=== PATIENT | male | born 1980 ===

== ENCOUNTER 2018-01-26 21:39 | Emergency (ER) | payer OTHER ==
[2018-01-26 21:40] VITALS: BMI 26.9
[2018-01-26 21:52] VITALS: PULSE 62; RESP 16; TEMP 98.2; O2SAT 100
[2018-01-26 22:24] LABS: BASO # 0.1 K/uL (0.0-0.2); BASO % 0.8 % (0.0-2.0); EOS # 0.1 K/uL (0.0-0.7); EOS % 1.1 % (0.0-4.0); HEMOGLOBIN 15.4 g/dL (12.0-18.0); LYMPH % 33.5 % (20.0-40.0); MEAN CELL VOLUME 84.2 fL (80.0-94.0); MEAN CORPUSCULAR HEMOGLOBIN 28.2 pg (27.0-31.0); MEAN CORPUSCULAR HGB CONC 33.5 g/dL (33.0-37.0); MONO % 10.7 % (0.0-10.0); NEUT # 4.9 K/uL (1.8-7.0); NEUT % 53.9 % (50.0-75.0); NRBC % 0.1 % (0.0-2.0); RBC 5.47 Mil/uL (4.40-5.90); RED CELL DISTRIBUTION WIDTH 13.4 % (11.5-14.5); WHITE BLOOD COUNT 9.1 K/uL (4.8-10.8)
--- NOTE | 2018-01-26 22:25 | C.PDOC ---
History Of Present Illness 37-year-old male, whose PMHx includes "clotting disorder" and hypertension, presents to the ED for evaluation of chest pain which began a few days ago. Patient states his Coumadin is currently being adjusted. He denies fever. Further history is limited secondary to patient being a poor historian. Time Seen by Provider: 01/26/18 22:06 Chief Complaint (Nursing): Chest Pain History Per: Patient (poor historian ) Current Symptoms Are (Timing): Still Present Quality: "Pain" Additional History Per: Patient Past Medical History Reviewed: Historical Data, Nursing Documentation, Vital Signs Vital Signs: Last Vital Signs Temp 98.2 F 01/26/18 21:45 Pulse 62 01/26/18 23:03 Resp 16 01/26/18 23:03 BP 116/67 01/26/18 23:03 Pulse Ox 100 01/26/18 23:03 - Medical History PMH: HTN, Hypercholesterolemia Surgical History: No Surg Hx Family History: States: Unknown Family Hx - Social History Hx Alcohol Use: No Hx Substance Use: No - Immunization History Hx Tetanus Toxoid Vaccination: Yes Hx Influenza Vaccination: No Hx Pneumococcal Vaccination: No Review Of Systems Constitutional: Negative for: Fever Cardiovascular: Positive for: Chest Pain Physical Exam - Physical Exam Appears: Non-toxic, No Acute Distress Skin: Normal Color, Warm, Dry Head: Atraumatic, Normacephalic Eye(s): bilateral: Normal Inspection Oral Mucosa: Moist Neck: Supple Chest: Symmetrical, No Deformity, No Tenderness Cardiovascular: Rhythm Regular, No Murmur Respiratory: Normal Breath Sounds, No Rales, No Rhonchi, No Wheezing Extremity: Normal ROM, Capillary Refill (less than 2 seconds ) ED Course And Treatment - Laboratory Results Result Diagrams: 01/26/18 22:18 01/26/18 22:18 ECG: Interpreted By Me, Viewed By Me ECG Rhythm: Sinus Rhythm Interpretation Of ECG: Normal Sinus Rhythm at rate 60bpm. No ST/T wave changes. Rate From EC O2 Sat by Pulse Oximetry: 100 (on RA) Pulse Ox Interpretation: Normal - Radiology CXR: Interpreted by Me (negative ) Medical Decision Making Medical Decision Making: cp ro acs pe Progress: Bloodwork, CXR and EKG ordered and reviewed. CXR is negative. pt reassesed all symptoms resolved. offered admission. pt prefers to go home. heart score 4. dimer neg. notified of subtherapeutic inr. adivsed to increase dose and f/u wtih pmd for titration. Disposition - Disposition Disposition: HOME/ ROUTINE Disposition Time: 23:00 Condition: STABLE Additional Instructions: please follow up with your doctor. return to er with your doctor/clinic. you should discuss with your doctor about your warfarin levels. your medications will need to be adjusted. Instructions: Chest Pain Forms: [employer] (Cupon[place]) Connect (Ghanaian) Print Language: MACEDONIAN - Clinical Impression Clinical Impression: Chest pain
[2018-01-26 22:34] LABS: INR 1.1; PARTIAL THROMBOPLASTIN TIME 29 SECONDS (21-34); PROTHROMBIN TIME 11.6 SECONDS (9.7-12.2)
[2018-01-26 22:36] LABS: ALB/GLOB RATIO 1.3 (1.0-2.1); ALBUMIN 4.3 g/dL (3.5-5.0); ALT/SGPT 41 U/L (21-72); AST/SGOT 27 U/L (17-59); BLOOD UREA NITROGEN 16 mg/dL (9-20); CALCIUM 9.4 mg/dl (8.6-10.4); GFR NON-AFRICAN AMERICAN > 60
[2018-01-26 22:43] LABS: D DIMER < 200 ng/mlDDU (0-243)
[2018-01-26 23:04] VITALS: BP 116/67
--- NOTE | 2018-01-27 08:46 | RAD ---
Date of service: 01/26/2018 PROCEDURE: CHEST RADIOGRAPH, 1 VIEW HISTORY: chest pain COMPARISON: 09/20/2017 FINDINGS: LUNGS: Clear. PLEURA: No pneumothorax or pleural fluid seen. CARDIOVASCULAR: Normal. OSSEOUS STRUCTURES: No significant abnormalities. VISUALIZED UPPER ABDOMEN: Normal. OTHER FINDINGS: None. IMPRESSION: No active disease. No interval pathology appreciated
--- NOTE | 2018-01-27 21:33 | CARD ---
APPROVED REPORT Date of service: 01/26/2018 EKG Measurement Heart [id number] <Conclusion> Normal sinus rhythm Normal ECG
== END 2018-01-26 23:05 | disposition home or self-care (01) ==
LOC: C.ER 21:39
DX: R07.9 Chest pain, unspecified (principal)

== ENCOUNTER 2018-02-04 19:45 | Emergency (ER) | payer OTHER ==
[2018-02-04 19:45] VITALS: BMI 26.9
[2018-02-04 19:55] VITALS: RESP 16; TEMP 98.4
[2018-02-04 20:16] LABS: BASO # 0.1 K/uL (0.0-0.2); BASO % 0.5 % (0.0-2.0); EOS # 0.1 K/uL (0.0-0.7); EOS % 0.9 % (0.0-4.0); HEMOGLOBIN 15.3 g/dL (12.0-18.0); LYMPH # 2.6 K/uL (1.0-4.3); LYMPH % 25.7 % (20.0-40.0); MEAN CELL VOLUME 83.4 fL (80.0-94.0); MEAN CORPUSCULAR HEMOGLOBIN 28.1 pg (27.0-31.0); MEAN CORPUSCULAR HGB CONC 33.7 g/dL (33.0-37.0); MEAN PLATELET VOLUME 9.3 fL (7.2-11.7); MONO # 0.9 K/uL (0.0-0.8); MONO % 9.1 % (0.0-10.0); NEUT # 6.4 K/uL (1.8-7.0); NEUT % 63.8 % (50.0-75.0); NRBC % 0.1 % (0.0-2.0); RBC 5.43 Mil/uL (4.40-5.90); RED CELL DISTRIBUTION WIDTH 13.4 % (11.5-14.5); WHITE BLOOD COUNT 10.1 K/uL (4.8-10.8)
[2018-02-04 20:24] LABS: INR 1.1; PROTHROMBIN TIME 11.7 SECONDS (9.7-12.2)
--- NOTE | 2018-02-04 20:28 | C.PDOC ---
History Of Present Illness 37 year old male presents with complaints of chest discomfort that has been on and off for the last 2 years. Patient states that he wants to have his Coumadin level checked. He was recently told to stop Coumadin because level was too high. States that about 10 years ago, he had a clot in his "heart arteries", which has been removed, and has been on Coumadin since. Pt is cp free now Time Seen by Provider: 02/04/18 20:27 Chief Complaint (Nursing): Chest Pain History Per: Patient History/Exam Limitations: no limitations Onset/Duration Of Symptoms: Days Current Symptoms Are (Timing): Still Present Severity: Moderate Pain Scale Rating Of: 3 Associated Symptoms: denies: Nausea Modifying Factors: None Exacerbating Factors: None Alleviating Factors: None Recent travel outside of the [place]: No Additional History Per: Patient, Family Past Medical History Reviewed: Historical Data, Nursing Documentation, Vital Signs Vital Signs: Last Vital Signs Temp 98.4 F 02/04/18 19:49 Pulse 75 02/04/18 19:49 Resp 16 02/04/18 19:49 BP 150/81 02/04/18 19:49 Pulse Ox 99 02/04/18 19:49 - Medical History PMH: HTN, Hypercholesterolemia Family History: States: No Known Family Hx - Social History Hx Alcohol Use: No Hx Substance Use: No - Immunization History Hx Tetanus Toxoid Vaccination: Yes Hx Influenza Vaccination: No Hx Pneumococcal Vaccination: No Review Of Systems Constitutional: Negative for: Fever, Chills, Sweats Cardiovascular: Positive for: Chest Pain. Negative for: Palpitations Respiratory: Negative for: Shortness of Breath Gastrointestinal: Negative for: Nausea, Vomiting Genitourinary: Negative for: Dysuria Musculoskeletal: Negative for: Back Pain Skin: Negative for: Rash Neurological: Negative for: Weakness, Numbness Psych: Negative for: Anxiety Physical Exam - Physical Exam Appears: Non-toxic, No Acute Distress Skin: Warm, Dry Head: Normacephalic Eye(s): bilateral: Normal Inspection Oral Mucosa: Moist Throat: No Erythema Neck: Trachea Midline, Supple Chest: Symmetrical Cardiovascular: Rhythm Regular Respiratory: No Rales, No Rhonchi, No Wheezing Gastrointestinal/Abdominal: Soft, No Tenderness, No Distention Back: Normal Inspection Extremity: Normal ROM Extremity: Bilateral: Atraumatic Pulses: Left Dorsalis Pedis: Normal, Right Dorsalis Pedis: Normal Neurological/Psych: Oriented x3, Normal Speech, Normal Cognition Gait: Steady ED Course And Treatment - Laboratory Results Result Diagrams: 02/04/18 20:11 02/04/18 20:11 ECG: Interpreted By Me, Viewed By Me ECG Rhythm: Sinus Rhythm (68), Nonspecific Changes O2 Sat by Pulse Oximetry: 99 (RA) Pulse Ox Interpretation: Normal - Radiology CXR: Interpreted by Me, Viewed By Me Progress Note: EKG, Labs, Chest X-Ray, and urinalysis ordered. Ecotrin administered. Reevaluation Time: 23:28 Reassessment Condition: Improved Medical Decision Making Medical Decision Making: I considered the following diagnoses: acute coronary syndrome, pulmonary embolism, lower respiratory infection, aortic dissection/aneurysm, pneumothorax, pericarditis, esophagitis/GERD, zoster and esophageal rupture but found them to be unlikely based on the history, physical exam, and diagnostics. My conclusions regarding the unlikely diagnoses were based on: the absence of significant EKG abnormalities, the lack of suggestive x-ray findings, the absence of significant abnormalities on cardiac monitoring, the absence of asymmetric pulses, Pt is cp free and wants to go home Disposition Counseled Patient/Family Regarding: Studies Performed, Diagnosis, Need For Followup - Disposition Referrals: [facility] [Outside] [facility] [Outside] Disposition: HOME/ ROUTINE Disposition Time: 20:28 Condition: FAIR Additional Instructions: Please return if symptoms recur Instructions: Chest Pain (DC) Forms: [facility] [employer] (Croatian) Print Language: MALTESE - Clinical Impression Clinical Impression: Chest discomfort - Scribe Statement The provider has reviewed the documentation as recorded by the Josiane Bell Provider Attestation: All medical record entries made by the Josiane were at my direction and personally dictated by me. I have reviewed the chart and agree that the record accurately reflects my personal performance of the history, physical exam, medical decision making, and the department course for this patient. I have also personally directed, reviewed, and agree with the discharge instructions and disposition.
[2018-02-04 20:36] LABS: ALB/GLOB RATIO 1.5 (1.0-2.1); ALBUMIN 4.7 g/dL (3.5-5.0); ALT/SGPT 41 U/L (21-72); AST/SGOT 30 U/L (17-59); BLOOD UREA NITROGEN 18 mg/dL (9-20); CALCIUM 9.3 mg/dl (8.6-10.4); GFR NON-AFRICAN AMERICAN > 60
[2018-02-04 20:45] LABS: SQUAMOUS EPITHIAL < 1 /hpf (0-5); URINE BILIRUBIN NEGATIVE (NEGATIVE); URINE BLOOD NEGATIVE (NEGATIVE); URINE CLARITY Clear (Clear); URINE COLOR Straw (YELLOW); URINE GLUCOSE (UA) NORMAL (Normal); URINE LEUKOCYTE ESTERASE NEG Leu/uL (Negative); URINE PROTEIN NEGATIVE (NEGATIVE); URINE UROBILINOGEN NORMAL mg/dL (0.2-1.0)
[2018-02-04] MEDS ORDERED: Aspirin 325 mg EC Tablets PO STA (20:53)
[2018-02-04 21:19] LABS: LIPASE 104 U/L (23-300)
[2018-02-04 23:28] VITALS: O2SAT 99
[2018-02-04 23:35] VITALS: BP 141/72; PULSE 92
--- NOTE | 2018-02-05 15:07 | RAD ---
Date of service: 02/04/2018 PROCEDURE: CHEST RADIOGRAPH, 1 VIEW HISTORY: chest pain COMPARISON: Comparison chest dated 01/26/2018 the FINDINGS: LUNGS: Clear. PLEURA: No pneumothorax or pleural fluid seen. CARDIOVASCULAR: Normal. OSSEOUS STRUCTURES: No significant abnormalities. VISUALIZED UPPER ABDOMEN: Normal. OTHER FINDINGS: None. IMPRESSION: No active disease.
--- NOTE | 2018-02-07 10:04 | CARD ---
APPROVED REPORT Date of service: 02/04/2018 EKG Measurement Heart [id number] <Conclusion> Normal sinus rhythm Normal ECG
== END 2018-02-04 23:40 | disposition home or self-care (01) ==
LOC: C.ER 19:45
DX: R07.89 Other chest pain (principal)

== ENCOUNTER 2018-04-07 22:32 | Emergency (ER) | payer OTHER ==
[2018-04-07 22:33] VITALS: BMI 26.9
[2018-04-07 22:41] VITALS: BP 143/91; PULSE 65; RESP 20; TEMP 98.2; O2SAT 100
[2018-04-07] MEDS ORDERED: Tetracaine 0.5% Ophth (OR ONLY) ONE (23:11)
[2018-04-07] MEDS ORDERED: Tobramycin 0.3% OPH OINT ONE (23:35)
[2018-04-07] MEDS ORDERED: Tobramycin 0.3% OPH OINT OD ONE (23:40)
--- NOTE | 2018-04-07 23:45 | C.PDOC ---
History Of Present Illness 38 year old male presents to the ED c/o FB sensation, redness, tearing in his right eye. Patient states that while at work some dust particles flew into his eye causing the discomfort. Patient states he flushed the eye however still feels discomfort which prompted the visit today. Patient denies fever, chills, visual changes, headache, injury, fall, trauma. Time Seen by Provider: 04/07/18 22:48 Chief Complaint (Nursing): Eye Problem History Per: Patient History/Exam Limitations: no limitations Onset/Duration Of Symptoms: Hrs Current Symptoms Are (Timing): Still Present Injury To Eye?: No Wears Contact Lens?: No Associated Symptoms: Pain, FB Sensation, Itching Recent travel outside of the [place]: No Additional History Per: Patient Past Medical History Reviewed: Historical Data, Nursing Documentation, Vital Signs Vital Signs: Last Vital Signs Temp 98.2 F 04/07/18 22:36 Pulse 65 04/07/18 22:36 Resp 20 04/07/18 22:36 BP 143/91 H 04/07/18 22:36 Pulse Ox 100 04/07/18 22:36 - Medical History PMH: HTN, Hypercholesterolemia Surgical History: No Surg Hx Family History: States: Unknown Family Hx - Social History Hx Alcohol Use: No Hx Substance Use: No - Immunization History Hx Tetanus Toxoid Vaccination: Yes Hx Influenza Vaccination: No Hx Pneumococcal Vaccination: No Review Of Systems Constitutional: Negative for: Fever, Chills Eyes: Positive for: Pain, Redness ENT: Negative for: Nose Discharge, Nose Congestion Respiratory: Negative for: Cough, Shortness of Breath Gastrointestinal: Negative for: Nausea, Vomiting Skin: Negative for: Rash Neurological: Negative for: Headache, Dizziness Physical Exam - Physical Exam Appears: Non-toxic, No Acute Distress Skin: Normal Color, Warm, Dry Head: Atraumatic, Normacephalic Eye(s): right: Other (no foreign body, ciliary injection, small corneal abrasion. Visual acuity 20/30 bilateral eyes. ), left: Normal Inspection Neck: Normal ROM, Supple Extremity: Normal ROM Neurological/Psych: Oriented x3, Normal Speech, Normal Cognition Gait: Steady ED Course And Treatment O2 Sat by Pulse Oximetry: 100 (ON RA) Pulse Ox Interpretation: Normal Progress Note: Plan: - Motrin 600 mg PO. - Tobrex 1 appl OD. On reassessment, patient is resting comfortably, and is in no acute distress. Patient was instructed to follow up with physician/clinic in 1-2 days for further evaluation. Disposition Counseled Patient/Family Regarding: Diagnosis, Need For Followup - Disposition Referrals: Ghanshyam Hong MD [Staff Provider] - Disposition: HOME/ ROUTINE Disposition Time: 23:38 Condition: STABLE Additional Instructions: Please follow up with Eye doctor- Call in AM for appointment Use oint as directed Tylenol or advil for pain Return to ER if worse Instructions: Corneal Abrasion (DC) Forms: [employer] (Nicaraguan) - Clinical Impression Clinical Impression: Corneal abrasion, right - PA / FLOOR TRADER / Resident Statement MD/DO has reviewed & agrees with the documentation as recorded. - Scribe Statement The provider has reviewed the documentation as recorded by the Scribe Arnulfo San All medical record entries made by the Scribe were at my direction and personally dictated by me. I have reviewed the chart and agree that the record accurately reflects my personal performance of the history, physical exam, medical decision making, and the department course for this patient. I have also personally directed, reviewed, and agree with the discharge instructions and disposition.
== END 2018-04-08 00:06 | disposition home or self-care (01) ==
LOC: C.ER 22:32
DX: S05.01XA Injury of conjunctiva and corneal abrasion without foreign body, right eye, initial encounter (principal); X58.XXXA Exposure to other specified factors, initial encounter; Y92.89 Other specified places as the place of occurrence of the external cause; Y99.0 Civilian activity done for income or pay

== ENCOUNTER 2018-06-22 07:49 | Outpatient (CLI) | payer OTHER | END 2018-06-22 07:50 | disposition home or self-care (01) | LOC: C.CARD 07:49 | DX: I10 Essential (primary) hypertension (principal); I08.1 Rheumatic disorders of both mitral and tricuspid valves ==

== ENCOUNTER 2018-09-12 17:08 | Outpatient (CLI) | payer OTHER | END 2018-09-12 17:09 | disposition home or self-care (01) | LOC: C.LAB 17:08 | DX: D68.59 Other primary thrombophilia (principal) ==